=== PATIENT | female | born 1980 | race Caucasian/White ===

== ENCOUNTER 2023-10-06 15:51 | Emergency (ER) | payer OTHER, SELFPAY ==
--- NOTE | 2023-10-06 16:07 | ED.URI ---
HPI - URI/Sore Throat General Chief Complaint: Upper Respiratory Infection Stated Complaint: Congestion/cough/has copd Time Seen by Provider: 10/06/23 16:07 Source: patient Mode of arrival: ambulatory Limitations: no limitations History of Present Illness HPI Narrative: 43 y/o female with Hx COPD presented for c/o worsening cough from baseline with chest congestion, wheezing, headache, and body aches. Reports poor sleeping due to being up coughing. Used the last of her albuterol inhaler. Taking mucinex. Down to 5 cigarettes per day. Denies chest pain, palpitations, nausea vomiting, diarrhea, fevers or lethargy. Does not have pcp. Related Data Home Medications Medication Instructions Recorded Confirmed albuterol sulfate 90 mcg/actuation 2 puff inhalation QID PRN sob 10/06/23 10/06/23 aerosol inhaler (Ventolin HFA) Allergies Allergy/AdvReac Type Severity Reaction Status Date / Time No Known Allergies Allergy Verified 10/06/23 16:05 Review of Systems Review of Systems: per HPI All systems reviewed & are unremarkable except as noted in HPI and below PMFSH Past Medical History Medical History COPD (chronic obstructive pulmonary disease) Social History Social History (Updated 10/06/23 @ 16:58 by Alejandra Adame APRN) Smoking status: Current every day smoker Tobacco type: cigarettes Comments At time of signature, I have reviewed and agree with nursing past medical, surgical, social and family history unless otherwise noted. Please see nursing chart for further information. There is no relevant family history pertinent to the presenting complaint Exam Narrative: GENERAL: Well-appearing, in no acute distress. EYES: EOMI. No redness or drainage. Conjunctivae normal. ENT: Mucous membranes pink and moist. No rhinorrhea. TMs normal bilaterally. Throat normal. Uvula midline. NECK: Normal AROM. Supple. CHEST: No respiratory distress. Coarse sounds to all keane. speaks full sentences HEART: Regular rate and rhythm. No murmur appreciated. ABDOMEN: Soft, nontender, nondistended, normal active bowel sounds. EXTREMITIES: Normal range of motion. No edema. SKIN: Warm, dry, no rash. Capillary refill normal. Normal skin turgor. NEURO: Alert and oriented x3. Gait steady. PSYCH: Normal affect. Course Course Emergency Course: Patient is aware of diagnosis, understands and agrees to treatment plan. Anticipatory guidance given. Patient agrees to follow-up as directed and is aware of reasons to seek care at the emergency department. Portions of this record may have been created with voice recognition software Level of Care: Express Care Visit Vital Signs Vital signs: Vital Signs Temperature 98.7 F 10/06/23 16:10 Pulse Rate 96 10/06/23 16:10 Respiratory Rate 20 10/06/23 16:10 Blood Pressure 161/73 H 10/06/23 16:10 Pulse Oximetry 99 10/06/23 16:10 Oxygen Delivery Room Air 10/06/23 16:10 Temperature 98.7 F 10/06/23 16:14 Pulse Rate 96 10/06/23 16:14 Respiratory Rate 20 10/06/23 16:14 Blood Pressure 161/73 H 10/06/23 16:14 Pulse Oximetry 99 10/06/23 16:14 Oxygen Delivery Room Air 10/06/23 16:14 MDM - URI/Sore Throat MDM Narrative Medical decision making narrative: negative flu and COVID. Results reviewed with patient. IM Solu-Medrol given. Patient reassessed after albuterol nebulizer. Significant improvement in lung sounds, reports improvement in breathing. Discussed physical exam findings. Advised supportive measures and signs/symptoms to go to the ER. Pt is appropriate for outpt treatment and f/u. Differential Diagnosis Differential diagnosis: Likely viral infection, bronchitis and other ( Pneumonia, CHF, pneumothorax) Lab Data Labs: Lab Results 10/06/23 Range/Units 16:40 POC SARS CoV-2 Ag Negative (Negative) Influenza A Screen Negative
[2023-10-06 16:10] VITALS: BP 161/73; PULSE 96; RESP 20; TEMP 37.1; O2SAT 99
[2023-10-06 16:14] VITALS: BP 161/73; PULSE 96; RESP 20; TEMP 37.1; O2SAT 99
[2023-10-06] MEDS: ALBUTEROL SULFATE NEB 2.5 MG/3 ML INH INHALATION (16:36)
[2023-10-06] MEDS: methylPREDNISolone SOD SUCC 125 MG VIAL IM (16:37)
== END 2023-10-06 17:25 | disposition home or self-care (01) ==
PROVIDERS: Emergency Provider Nurse Practitioner Family
DX: J40 Bronchitis, not specified as acute or chronic (principal); Z20.822 Contact with and (suspected) exposure to COVID-19; J44.9 Chronic obstructive pulmonary disease, unspecified; F17.210 Nicotine dependence, cigarettes, uncomplicated
CPT/HCPCS: 87426; 87804; 94640; 96372; 99213; G0463; J2930

== ENCOUNTER 2023-10-10 16:51 | Emergency (ER) | payer OTHER, SELFPAY ==
--- NOTE | ~2023-10-10 | XR_ITS ---
EXAMINATION: XR chest 2V Exam Date/Time: 10/10/2023 17:25 FIRST ASSIST HISTORY: COUGH,CONGESTION, FEVER Comparison: None. RESULT: Lines, tubes, and devices: Cholecystectomy clips. Lungs and pleura: Clear. Cardiomediastinal silhouette: Stable. Other: No acute osseous or upper abdominal finding. IMPRESSION: No acute cardiopulmonary process. Reviewed, dictated and finalized at location K. T ASSIST
[2023-10-10 17:16] VITALS: BP 180/104; PULSE 86; RESP 16; TEMP 37.3; O2SAT 97
--- NOTE | 2023-10-10 17:20 | ED.URI ---
HPI - URI/Sore Throat General Chief Complaint: Upper Respiratory Infection Stated Complaint: Cough/Chest Congestion Time Seen by Provider: 10/10/23 16:55 History of Present Illness HPI Narrative: patient was treated 4 days ago at this facility for cough and COPD exacerbation. Patient presents today with worsening symptoms of her cough. Patient denies any shortness of breath no chest pain but states she does not feel that she is getting any better. Related Data Home Medications Medication Instructions Recorded Confirmed albuterol sulfate 90 mcg/actuation 2 puff inhalation QID PRN sob 10/06/23 10/06/23 aerosol inhaler (Ventolin HFA) Allergies Allergy/AdvReac Type Severity Reaction Status Date / Time No Known Allergies Allergy Verified 10/10/23 16:52 [facility] Past Medical History Medical History COPD (chronic obstructive pulmonary disease) Social History Social History (Updated 10/06/23 @ 16:58 by Alejandra Adame APRN) Smoking status: Current every day smoker Tobacco type: cigarettes Course Course Level of Care: Express Care Visit Vital Signs Vital signs: Vital Signs Temperature 37.3 C 10/10/23 17:16 Pulse Rate 86 10/10/23 17:16 Respiratory Rate 16 10/10/23 17:16 Blood Pressure 180/104 H 10/10/23 17:16 Pulse Oximetry 97 10/10/23 17:16 Oxygen Delivery Room Air 10/10/23 17:16 Temperature 37.3 C 10/10/23 17:16 Pulse Rate 86 10/10/23 17:16 Respiratory Rate 16 10/10/23 17:16 Blood Pressure 180/104 H 10/10/23 17:16 Pulse Oximetry 97 10/10/23 17:16 Oxygen Delivery Room Air 10/10/23 17:16 patient feels much better after nebulizer treatment respirations even and nonlabored wheezes resolved. MDM - URI/Sore Throat Lab Data Labs: No active disease Discharge Plan Discharge Clinical Impression: COPD (chronic obstructive pulmonary disease), COPD exacerbation Patient Disposition: Home, Self-Care Condition: Stable Instructions: Antibiotic Form Additional Instructions: use home nebulizer as prescribed Follow-up with primary care provider in 2-3 days for re-evaluation If any new or worsening of symptoms go to ER immediately further evaluation treatment congestion - flonase am and pm for chronic sinus congestion or prolonged symptoms of sinusitis (takes several days to work). one to three times a day of irrigation of sinus with saline spray, ocean nasal spray or sam pot. fluids. if you don't have hypertension-afrin nasal spray with a 3 day limit for immediate relief of sinus congestion. for runny nose: do over the counter antihistamine (claritin, benadryl, zyrtec) for sneezing, runny nose. allergies. sudafed or decongestant can also be used, unless you have elevated blood pressure, nursing or . pineapple juice to help thin mucus pain and discomfort: over the counter treatment for pain - tylenol - with a max of 3 grams a day, not to take more than 3-4 days at this dose. discussed aleve - 1-2 am and pm with food. also not to take more than a few days if not improving. patient understands not to take ibuprofen or aleve without food. patient understands ibuprofen max is 4 pills 3 times a day, also not to take this amount for more than a few days if not improving. rest. -If you have any worsening of symptoms or any other concerns please go to the ED immediately. throat pain- gargling with salt water, throat losengers or chloraseptic spray may help with throat pain. if older than 2 years, cough- can try honey for cough if older than one year. mucinex, nyquil, dayquil, robitussin and other otc cold/cough medications can all be used in teenagers and adults with caution. do not mix or use multiple therapies without discussing with your doctor or pharmacy. steam from shower twice daily or cool mist humidifier. pineapple juice to help thin mucus eat y
[2023-10-10 17:21] VITALS: BP 180/104; PULSE 86; RESP 16; TEMP 37.3; O2SAT 97
[2023-10-10] MEDS: ALBUTEROL SULFATE NEB 2.5 MG/3 ML INH INHALATION (17:31)
[2023-10-10] MEDS: IPRATROPIUM BR 0.02% INH SOLN 0.5 MG/2.5 ML VIAL INHALATION (17:31)
[2023-10-10 18:02] VITALS: PULSE 95; RESP 20; O2SAT 97
== END 2023-10-10 18:02 | disposition home or self-care (01) ==
PROVIDERS: Emergency Provider Nurse Practitioner Family
DX: J44.1 Chronic obstructive pulmonary disease with (acute) exacerbation (principal); F17.210 Nicotine dependence, cigarettes, uncomplicated
CPT/HCPCS: 71046; 94640; 99213; G0463

== ENCOUNTER 2024-07-04 15:57 | Emergency (ER) | payer OTHER, SELFPAY ==
[2024-07-04 16:02] VITALS: BP 211/107; BP 214/106; PULSE 122; RESP 22; TEMP 36.7; O2SAT 98
--- NOTE | 2024-07-04 16:20 | ED.URI ---
HPI - URI/Sore Throat General Chief Complaint: Upper Respiratory Infection Stated Complaint: needs inhaler refill Time Seen by Provider: 07/04/24 16:22 Source: patient Mode of arrival: ambulatory Limitations: no limitations History of Present Illness HPI Narrative: 44-year-old female with history of COPD presented requesting an albuterol inhaler refill. She states she has used the last of the inhaler today while working outside. She currently denies shortness of breath, wheezing, chest pain, nausea, vomiting diarrhea, fevers or chills. Does not have a PCP. Cutting down cigarettes to 7/day. Related Data Allergies Allergy/AdvReac Type Severity Reaction Status Date / Time No Known Allergies Allergy Verified 07/04/24 16:14 Review of Systems Review of Systems: CONSTITUTIONAL: Denies body aches, fever, chills, or sweats. EYES: Denies visual changes ENT: Denies rhinorrhea, congestion, sore throat, or otalgia. CARDIOVASCULAR: Denies chest pain, palpitations, or edema. RESPIRATORY: Reports cough, denies sob, wheezing. GASTROINTESTINAL: Denies abdominal pain, nausea, vomiting, or diarrhea. GENITOURINARY: Denies dysuria or hematuria. NEUROLOGIC: Denies headache, numbness, tingling, or weakness. All systems reviewed & are unremarkable except as noted in HPI and below PMFSH Past Medical History Medical History COPD (chronic obstructive pulmonary disease) Social History Social History Smoking status: Current every day smoker Tobacco type: cigarettes Comments At time of signature, I have reviewed and agree with nursing past medical, surgical, social and family history unless otherwise noted. Please see nursing chart for further information. There is no relevant family history pertinent to the presenting complaint Exam Narrative: GENERAL: Well-appearing, in no acute distress. EYES: EOMI. No redness or drainage. Conjunctivae normal. ENT: Mucous membranes pink and moist. CHEST: No respiratory distress. lungs clear to all keane. tachypnea HEART: Regular rhythm, tachycardic. No murmur appreciated. SKIN: Warm, dry, Capillary refill normal. Normal skin turgor. NEURO: Alert and oriented x3. Gait steady. PSYCH: Normal affect. Course Course Emergency Course: Patient is aware of diagnosis, understands and agrees to treatment plan. Anticipatory guidance given. Patient agrees to follow-up as directed and is aware of reasons to seek care at the emergency department. Portions of this record may have been created with voice recognition software Level of Care: Express Care Visit Vital Signs Vital signs: Vital Signs Temperature 98.0 F 07/04/24 16:02 Pulse Rate 122 H 07/04/24 16:02 Respiratory Rate 22 H 07/04/24 16:02 Blood Pressure 211/107 H 07/04/24 16:02 Pulse Oximetry 98 07/04/24 16:02 Oxygen Delivery Room Air 07/04/24 16:02 Temperature 98.0 F 07/04/24 16:02 Pulse Rate 112 H 07/04/24 16:35 Respiratory Rate 22 H 07/04/24 16:02 Blood Pressure 207/119 H 07/04/24 16:35 Pulse Oximetry 98 07/04/24 16:02 Oxygen Delivery Room Air 07/04/24 16:02 MDM - URI/Sore Throat MDM Narrative Medical decision making narrative: Patient is requesting an albuterol inhaler, however she is noted to be tachycardic, tachypnea, and hypertensive. She is advised on the importance of hypertensive urgency to go to the ER. She declines at this time stating she needs to paint her ceiling. Says she might go in the morning. Currently denies chest pain, palpitations, headache or dizziness. She will sign AMA The patient is AA&Ox3, free from distracting injury. The patient has demonstrated concrete thinking/reasoning, has maintained an pleating supervisor/reasonable conversation, appears to have intact insight/judgment/reason and therefore has capacity to make decisions. Given the patients
[2024-07-04 16:35] VITALS: BP 207/119; PULSE 112
== END 2024-07-04 16:35 | disposition left against medical advice (07) ==
PROVIDERS: Emergency Provider Nurse Practitioner Family
DX: I16.0 Hypertensive urgency (principal); J44.9 Chronic obstructive pulmonary disease, unspecified; F17.210 Nicotine dependence, cigarettes, uncomplicated
CPT/HCPCS: 99213; G0463